=== PATIENT | male | born 1945 | race Two or more races ===

== ENCOUNTER 2018-02-05 21:02 | Emergency (ER) | payer MEDICARE, BC ==
--- NOTE | 2018-02-05 22:08 | ER Document Report ---
ED Medical Screen (RME) - General Chief Complaint: Chest Pain Stated Complaint: CHEST PAIN Time Seen by Provider: 02/05/18 21:59 Notes: Patient presents with sharp chest pain located more on left side of chest approximately 5 PM. Patient states that the pain became worse which prompted him to come to the emergency department. He describes the pain as sharp but nonradiating into his jaw or arms. He states he has had pain like this in the past but pain was worse today. Patient has detailed medical sheet with him he lives in [place] and is vacationing at this time seeing family in this region of the country. I have greeted and performed a rapid initial assessment of this patient. A comprehensive ED assessment and evaluation of the patient, analysis of test results and completion of the medical decision making process will be conducted by additional ED providers. PHYSICAL EXAMINATION: GENERAL: Well-appearing, in no acute distress. HEAD: Atraumatic, normocephalic. EYES: Pupils equal round extraocular movements intact, conjunctiva are normal. ENT: Nares patent NECK: Normal range of motion LUNGS: No respiratory distress NEUROLOGICAL: Normal speech PSYCH: Normal mood, normal affect. TRAVEL OUTSIDE OF THE [place] IN LAST 30 DAYS: No Physical Exam - Vital signs Vitals: Temp Pulse Resp BP Pulse Ox 97.1 F 62 20 133/78 H 96 02/05/18 21:46 02/05/18 21:46 02/05/18 21:46 02/05/18 21:46 02/05/18 21:46 Course - Vital Signs Vital signs: Temp Pulse Resp BP Pulse Ox 97.1 F 62 20 133/78 H 96 02/05/18 21:46 02/05/18 21:46 02/05/18 21:46 02/05/18 21:46 02/05/18 21:46
[2018-02-06 00:48] LABS: ABSOLUTE BASOPHILS # (AUTO) 0.1 10^3/uL (0.0-0.2); ABSOLUTE EOSINOPHILS # (AUTO) 0.1 10^3/uL (0.0-0.6); ABSOLUTE LYMPHOCYTES (AUTO) 1.5 10^3/uL (0.5-4.7); ABSOLUTE MONOCYTES (AUTO) 0.3 10^3/uL (0.1-1.4); ABSOLUTE NEUT (AUTO) 1.8 10^3/uL (1.7-8.2); BASOPHILS % (AUTO) 1.5 % (0-2); EOSINOPHILS % (AUTO) 2.6 % (0-6); HEMATOCRIT 42.1 % (37.9-51.0); HEMOGLOBIN 14.8 g/dL (13.5-17.0); LYMPHOCYTES % (AUTO) 40.2 % (13-45); MEAN CORPUSCULAR HEMOGLOBIN 32.2 pg (27.0-33.4); MEAN CORPUSCULAR HGB CONC 35.1 g/dL (32.0-36.0); MEAN CORPUSCULAR VOLUME 92 fl (80-97); MONOCYTES % (AUTO) 8.7 % (3-13); PLATELET COUNT 194 10^3/uL (150-450); RED CELL DISTRIBUTION WIDTH 14.4 % (11.5-14.0); TOTAL CELLS COUNTED % (AUTO) 100 %; WHITE BLOOD COUNT 3.8 10^3/uL (4.0-10.5)
[2018-02-06 00:54] LABS: INTERNATIONAL RATION (INR) 1.05; PROTHROMBIN TIME 14.2 SEC (11.4-15.4)
[2018-02-06 01:34] VITALS: BP 139/87
--- NOTE | 2018-02-06 02:20 | ER Document Report ---
ED General - General Chief Complaint: Chest Pain Stated Complaint: CHEST PAIN Time Seen by Provider: 02/05/18 21:59 Mode of Arrival: Ambulatory Information source: Patient, Parent, Relative TRAVEL OUTSIDE OF THE [place] IN LAST 30 DAYS: No - HPI Patient complains to provider of: Pain along the left chest wall Onset: Other - This is a 72-year-old man with a history of left chest wall pain for which he is twice been evaluated identified to have a possible neoplasm in the left chest as told by a previous doctor though he is uncertain about this diagnosis at this time but is visiting from out of town in [place] where he gets most of his care because he had an increase in his pain level. He denies any fevers or chills shortness of breath says this is distinctly different than any heart problem that he has had does not believe it is related to his heart believes that it is related specifically to his chest pain. Past Medical History - General Information source: Patient - Social History Smoking Status: Unknown if Ever Smoked Family History: None Patient has suicidal ideation: No Patient has homicidal ideation: No Renal/ Medical History: Denies: Hx Peritoneal Dialysis Review of Systems - Review of Systems -: Yes All other systems reviewed and negative Physical Exam - Vital signs Vitals: Temp Pulse Resp BP Pulse Ox 97.1 F 62 20 133/78 H 96 02/05/18 21:46 02/05/18 21:46 02/05/18 21:46 02/05/18 21:46 02/05/18 21:46 - General General appearance: Appears well In distress: None - HEENT Head: Normocephalic Eyes: Normal Conjunctiva: Normal Cornea: Normal Extraocular movements intact: Yes Eyelashes: Normal Pupils: PERRL - Respiratory Respiratory status: No respiratory distress Chest status: Chest mass - Palpable mass at the base of the left chest wall along the edge of the costal margin Breath sounds: Normal Chest palpation: Normal - Cardiovascular Rhythm: Regular Heart sounds: Normal auscultation Murmur: No - Abdominal Inspection: Normal Distension: No distension Tenderness: Nontender - Back Back: Normal - Extremities General upper extremity: Normal inspection, Nontender, Normal ROM, Normal strength General lower extremity: Normal inspection, Nontender, Normal ROM, Normal strength - Neurological Neuro grossly intact: Yes Cognition: Normal Orientation: AAOx4 [place] Coma Scale Eye Opening: Spontaneous [place] Coma Scale Verbal: Oriented [place] Coma Scale Motor: Obeys Commands [place] Coma Scale Total: 15 Speech: Normal Cranial nerves: Normal Cerebellar coordination: Normal Motor strength normal: LUE, RUE, LLE, RLE - Psychological Associated symptoms: Normal affect Course - Re-evaluation Re-evalutation: 02/06/18 03:32 72-year-old male with a known history of a mass previously identified of an unknown origin in the left chest wall by previous doctor. He notes that it has caused some pain there and he was told that this may be cancer. Today it seemed to increase in its pain level briefly which prompted him to come the emergency room though he receives all of his care in [place] currently. 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 On examination however this patient does have an obvious palpable mass at the base of his left chest wall. Spoke to the patient at length about pursuing care here or in [place] he notes that he will be pursuing all of his care in [place] and has no desire currently to pursue care in [place]. Will obtain a CTA of this patient's chest, will obtain troponin 2 EKG. We will administer analgesia and reassess as necessary. Believe that this patient has identified lesion however it is likely to be of little utility for him to be hospitalized here as most of his care is going to be done in [place]. 02/06/18 03:49 CTP does not demonstrate any obvious masses, it appears that his areas of greatest tenderness or bony. Because of the concern of this bony tenderness believe this patient would best be served if discharged home with follow-up in [place]. - Vital Signs Vital signs: Temp Pulse Resp BP Pulse Ox 97.1 F 62 17 139/87 H 95 02/05/18 21:46 02/05/18 21:46 02/06/18 01:00 02/06/18 00:02 02/06/18 01:00 - Laboratory Result Diagrams: 02/06/18 00:41 02/06/18 01:45 Laboratory results interpreted by me: 02/06/18 02/06/18 00:41 01:45 WBC 3.8 L RDW 14.4 H Chloride 108 H Albumin 3.4 L Discharge - Discharge Clinical Impression: Chest wall pain, Rib pain Condition: Good Disposition: HOME, SELF-CARE Instructions: Chest Pain of Unclear Cause ([facility]), Chest Wall Pain ([facility]) Additional Instructions: Your seen today in the emergency department for your pain in your chest, you had an evaluation including blood tests, an EKG, a CT scan of your chest. The CT scan of your chest did not show an obvious cancer, tumor or growth. The area which hurts the most along the chest does have some abnormal bony growth. Use the medication as needed for your pain, placed the patches on once a day. Prescriptions: Lidocaine HCl [Xylocaine 5% Ointment 35.44 gm] 35.44 applic TP DAILY 7 Days #1 tube
[2018-02-06 02:48] LABS: ALANINE AMINOTRANSFERASE 21 U/L (21-72); ALBUMIN 3.4 g/dL (3.5-5.0); ALKALINE PHOSPHATASE 49 U/L (38-126); ANION GAP 10 (5-19); ASPARTATE AMINO TRANSFERASE 47 U/L (17-59); BILIRUBIN,DIRECT 0.4 mg/dL (0.0-0.4); BILIRUBIN,TOTAL 0.7 mg/dL (0.2-1.3); BLOOD UREA NITROGEN 18 mg/dL (7-20); CALCIUM 8.9 mg/dL (8.4-10.2); CARBON DIOXIDE 24 mmol/L (22-30); CHLORIDE 108 mmol/L (98-107); GLUCOSE 106 mg/dL (75-110); POTASSIUM 3.8 mmol/L (3.6-5.0); SODIUM 141.5 mmol/L (137-145); TOTAL PROTEIN 6.5 g/dL (6.3-8.2)
--- NOTE | 2018-02-06 03:36 | RADIOLOGY REPORT (SQ) ---
EXAM DESCRIPTION: CT CHEST ANGIOGRAPHY WITHOUT THEN WITH IV CONTRAST COMPLETED DATE/TME: 02/05/2018 23:36 CLINICAL HISTORY: 72 years, Male, chest pain COMPARISON: None. TECHNIQUE: Axial CT images of the chest were obtained after the administration of IV contrast. MPR and MIP reconstructions were performed. DLP 1219 Images stored on PACS. All CT scanners at this facility use dose modulation, iterative reconstruction, and/or weight based dosing when appropriate to reduce radiation dose to as low as reasonably achievable (ALARA). [facility]: Dose Right [facility]: CareDose [facility]: Dose Right [facility]: Teradose 4D [facility]: [employer] LIMITATIONS: None. FINDINGS: Upper abdomen: Partially imaged. Thoracic aorta: Unremarkable. Heart: No right atrial thrombus. There are atherosclerotic calcifications of the coronary arteries. Changes of a CABG. RV/LV ratio: Within normal limits. Pulmonary arteries: Technical: Adequate opacification to the level of the segmental vessels. Pulmonary embolus: No low-density filling defect to suggest acute PE. Overall embolic burden: None. Mediastinum: No pathologic sized middle mediastinal lymphadenopathy. Tracheobronchial tree: Unremarkable. Lungs: Lobar consolidation: Negative. Pleural effusion: Negative. Pneumothorax: Negative. Other: Negative. Bones: Unremarkable. Spinal stimulator leads are noted along the lower thoracic spine. IMPRESSION: No CT evidence of acute PE TECHNICAL DOCUMENTATION: Quality ID # 436: Final reports with documentation of one or more dose reduction techniques (e.g., Automated exposure control, adjustment of the mA and/or kV according to patient size, use of iterative reconstruction technique) 2010 [employer]- All Rights Reserved
[2018-02-06] MEDS ORDERED: LIDOCAINE 5% (700 MG) TRANSDERMAL ADH..PATCH TP ONE ×2 (03:45→04:01)
--- NOTE | 2018-02-06 07:57 | EKG REPORT ---
SEVERITY:- ABNORMAL ECG - SINUS RHYTHM FIRST DEGREE AV BLOCK NONSPECIFIC INTRAVENTRICULAR CONDUCTION DELAY PROBABLE INFERIOR INFARCT, AGE INDETERMINATE : Confirmed by: Breanne Taveras MD 06-Feb-2018 07:56:50
--- NOTE | 2018-02-06 08:04 | RADIOLOGY REPORT (SQ) ---
EXAM DESCRIPTION: CHEST SINGLE VIEW COMPLETED DATE/TIME: 02/05/2018 10:12 pm REASON FOR STUDY: chest pain COMPARISON: None. EXAM PARAMETERS: NUMBER OF VIEWS: One view. TECHNIQUE: Single frontal radiographic view of the chest acquired. RADIATION DOSE: NA LIMITATIONS: None. FINDINGS: LUNGS AND PLEURA: No opacities, masses or pneumothorax. No pleural effusion. MEDIASTINUM AND HILAR STRUCTURES: No masses. Contour normal. HEART AND VASCULAR STRUCTURES: Heart normal in size. Normal vasculature. BONES: No acute findings. HARDWARE: Patient is status post median sternotomy. Electrodes related to a stimulator device are id entified projected in the midthoracic spine. OTHER: No other significant finding. IMPRESSION: NO ACUTE RADIOGRAPHIC FINDING IN THE CHEST. TECHNICAL DOCUMENTATION: JOB ID: [id number] [employer]- All Rights Reserved Reading location - IP/workstation name: [email or web address]
== END 2018-02-06 04:21 | disposition home or self-care (01) ==
LOC: ER 21:02
DX: R07.89 Other chest pain (principal); R07.81 Pleurodynia; R22.2 Localized swelling, mass and lump, trunk; Z95.1 Presence of aortocoronary bypass graft; Z95.5 Presence of coronary angioplasty implant and graft
CPT/HCPCS: 36415; 71045; 71275; 80053; 84484; 85025; 85610; 93005; 93010; 99285